=== PATIENT | male | born 1960 | race Two or more races ===

== ENCOUNTER 2018-03-26 09:10 | Observation (INO) | payer OTHER ==
[2018-03-26] MEDS ORDERED: SODIUM CHLORIDE 0.9% 1000 ML INFUS.BAG IV ONE (10:28)
[2018-03-26] MEDS ORDERED: morphine CARPU-JECT 4 MG/1 ML DISP.SYRIN IVPUSH ONE (10:28)
--- NOTE | 2018-03-26 10:42 | PDOC ---
History of Present Illness - General History Source: Patient Exam Limitations: No Limitations - History of Present Illness Initial Comments: 03/26/18 10:45 The patient is a 57 year old male with no significant PMH who presents to the emergency department with right testicular pain and swelling for the past three days. Patient states the testicular pain is constant and denies any trauma to the area. Patient reports subjective fevers at home, and states he took Tylenol last night and started himself on amoxicillin which he had at home. Patient denies similar symptoms in the past. Patient denies history of hernias in the past. The patient denies chest pain, shortness of breath, headache and dizziness. Denies fever, chills, nausea, vomit, diarrhea and constipation. Denies dysuria, frequency, urgency and hematuria. Allergies: NKA Past surgical history: None reported. Social history: No reported alcohol, drug, or cigarette use. PCP: Dr. Vizcarra <Charleen Rodriguez - Last Filed: 03/26/18 10:47> - General History Source: Patient Exam Limitations: No Limitations <Pricila Quiñonez - Last Filed: 03/26/18 20:45> - General Chief Complaint: Pain, Acute Stated Complaint: TESTICLE PAIN Past History <Charleen Rodriguez - Last Filed: 03/26/18 10:47> - Past Medical History COPD: No - Immunization History Immunization Up to Date: Yes - Suicide/Smoking/Psychosocial Hx Smoking History: Never smoked <Pricila Quiñonez - Last Filed: 03/26/18 20:45> - Past Medical History Allergies/Adverse Reactions: Allergies Allergy/AdvReac Type Severity Reaction Status Date / Time No Known Allergies Allergy Verified 03/26/18 09:46 Review of Systems - Review of Systems Able to Perform ROS?: Yes Comments:: 03/26/18 10:45 ADULT ROS GENERAL/CONSTITUTIONAL: No fever or chills. No weakness. HEAD, EYES, EARS, NOSE AND THROAT: No change in vision. No ear pain or discharge. No sore throat. CARDIOVASCULAR: No chest pain or shortness of breath. RESPIRATORY: No cough, wheezing, or hemoptysis. GASTROINTESTINAL: No nausea, vomiting, diarrhea or constipation. GENITOURINARY: No dysuria, frequency, or change in urination. (+) Right testicular pain and swelling. MUSCULOSKELETAL: No joint or muscle swelling or pain. No neck or back pain. SKIN: No rash NEUROLOGIC: No headache, vertigo, loss of consciousness, or change in strength/ sensation. ENDOCRINE: No increased thirst. No abnormal weight change. HEMATOLOGIC/LYMPHATIC: No anemia, easy bleeding, or history of blood clots. ALLERGIC/IMMUNOLOGIC: No hives or skin allergy. <Charleen Rodriguez - Last Filed: 03/26/18 10:47> *Physical Exam - Vital Signs Last Vital Signs Temp Pulse Resp BP Pulse Ox 99.2 F 84 18 131/76 97 03/26/18 09:20 03/26/18 09:20 03/26/18 09:20 03/26/18 09:20 03/26/18 09:20 - Physical Exam Comments: 03/26/18 10:46 ADULT EXAM GENERAL: Awake, alert, and fully oriented, in no acute distress HEAD: No signs of trauma EYES: PERRLA, EOMI, sclera anicteric, conjunctiva clear ENT: Auricles normal inspection, hearing grossly normal, nares patent. Moist mucosa NECK: Normal ROM, supple, no lymphadenopathy, JVD, or masses LUNGS: Breath sounds equal, clear to auscultation bilaterally. No wheezes, and no crackles HEART: Regular rate and rhythm, normal S1 and S2, no murmurs, rubs or gallops ABDOMEN: Soft, nontender, normoactive bowel sounds. No guarding, no rebound. No masses EXTREMITIES: Normal range of motion, no edema. No erythema or tenderness. DP/PT pulses 2+ and symmetric. Warm and well perfused. GENITOURINARY: (+) Right testicle is warm, erythematous, large, and tender. Left testicle is nontender. NEUROLOGICAL: Moves all extremities. Normal speech, normal gait SKIN: Warm, Dry, normal turgor, no rashes or lesions noted. <Charleen Rodriguez - Last Filed: 03/26/18 10:47> - Vital Signs Last Vital Signs Temp Pulse Resp BP Pulse Ox 99.2 F 84 18 131/76 97 03/26/18 09:20 03/26/18 09:20 03/26/18 09:20 03/26/18 09:20 03/26/18 09:20 <Pricila Quiñonez - Last Filed: 03/26/18 20:45> ED Treatment Course - LABORATORY CBC & Chemistry Diagram: 03/26/18 10:52 03/26/18 10:52 - RADIOLOGY Radiology Studies Ordered: Category Date Time Status SCROTUM AND CONTENTS US [US] Stat Ultrasound 03/26/18 10:26 Ordered <Pricila Quiñonez - Last Filed: 03/26/18 20:45> Medical Decision Making - Medical Decision Making 03/26/18 10:40 57-year-old male no past medical history here today complaining of right testicular pain patient states symptoms started 3 days ago denies trauma describes subjective fever and chills no nausea no vomiting no dysuria no history of the same. States took Tylenol this a.m. and started himself on amoxicillin which he had lying around the house no improvement of his symptoms. On physical exam the right testicle is warm erythematous swollen and exquisitely tender there is no palpable hernia it is enlarged compared to the left the left testicle is nontender Differential diagnosis includes orchitis, epididymitis, torsion, hernia. Plan ultrasound of the right testicle UA labs pain control 03/26/18 15:00 us with mass like lesion above right epeidydmis, no hernia . given zosyn, d/w herb will see pt in ed. will admit for abx iv, urology eval and pain control. <Pricila Quiñonez - Last Filed: 03/26/18 20:45> *DC/Admit/Observation/Transfer - Attestations Scribe Attestion: 03/26/18 10:46 Documentation prepared by Charleen Rodriguez, acting as medical driver for Pricila Quiñonez MD. <Charleen Rodriguez - Last Filed: 03/26/18 10:47> - Discharge Dispostion Decision to Admit order: Yes <Pricila Quiñonez - Last Filed: 03/26/18 20:45> Diagnosis at time of Disposition: Epididymitis, Epididymal mass
[2018-03-26] MEDS ORDERED: morphine SULFATE 4 MG/ML VIAL ONE (11:08)
[2018-03-26 11:19] LABS: BASO % 0.4 % (0-2.0); EOS % 0.8 % (0-4.5); HEMATOCRIT 38.9 % (35.4-49); HEMOGLOBIN 12.3 GM/dL (11.7-16.9); LYMPH % 17.9 % (8-40); MCH 26.5 pg (25.7-33.7); MCHC 31.7 g/dl (32.0-35.9); MEAN CELL VOLUME 83.7 fl (80-96); MEAN PLT VOLUME 8.7 fl (7.5-11.1); MONO % 8.2 % (3.8-10.2); NEUT % 72.7 % (42.8-82.8); PLATELET COUNT 218 K/MM3 (134-434); RBC 4.65 M/mm3 (4.00-5.60); WHITE BLOOD COUNT 9.6 K/mm3 (4.0-10.0)
[2018-03-26 11:45] LABS: ALBUMIN 3.3 g/dl (3.4-5.0); ALK PHOS 68 U/L (45-117); ANION GAP 8 MMOL/L (8-16); BILIRUBIN,TOTAL 0.8 mg/dL (0.2-1); BLOOD UREA NITROGEN 15 mg/dL (7-18); CALCIUM 8.6 mg/dL (8.5-10.1); CHLORIDE 106 mmol/L (98-107); CO2 27 mmol/L (21-32); CREATININE 1.1 mg/dL (0.55-1.3); GLUCOSE,RANDOM 93 mg/dL (74-106); POTASSIUM 4.4 mmol/L (3.5-5.1); SGOT/AST 31 U/L (15-37); SGPT/ALT 38 U/L (13-61); SODIUM 141 mmol/L (136-145); TOT PROT 6.6 g/dl (6.4-8.2)
[2018-03-26] MEDS ORDERED: PIPERACILLIN/TAZOB 3.375 GM 3.375 GM in DEXTROSE 5%-WATER - 50 ML IVPB ONE (13:05)
[2018-03-26 13:11] LABS: URINE APPEARANCE CLEAR; URINE BILIRUBIN NEGATIVE (<2.0 mg/dL); URINE COLOR YELLOW; URINE GLUCOSE (UA) NEGATIVE (NEGATIVE); URINE KETONE TRACE (NEGATIVE); URINE LEUK ESTERASE TRACE (NEGATIVE); URINE NITRITE NEGATIVE (NEGATIVE); URINE PROTEIN NEGATIVE (NEGATIVE); URINE UROBILINOGEN NEGATIVE mg/dL (0.2-1.0)
[2018-03-26 13:22] LABS: EPI CELLS RARE /HPF (FEW); URINE MUCUS FEW
[2018-03-26] MEDS ORDERED: PIPERACILLIN/TAZOB 3.375 GM 3.375 GM/50 ML BAG IVPB ONE (14:11)
--- NOTE | 2018-03-26 15:04 | HP ---
CHIEF COMPLAINT: PCP: HISTORY OF PRESENT ILLNESS: ER course was notable for: (1) (2) (3) Recent Travel: PAST MEDICAL HISTORY: PAST SURGICAL HISTORY: Social History: Smoking: Alcohol: Drugs: Family History: Allergies No Known Allergies Allergy (Verified 03/26/18 09:46) HOME MEDICATIONS: REVIEW OF SYSTEMS CONSTITUTIONAL: Absent: fever, chills, diaphoresis, generalized weakness, malaise, loss of appetite, weight change HEENT: Absent: rhinorrhea, nasal congestion, throat pain, throat swelling, difficulty swallowing, mouth swelling, ear pain, eye pain, visual changes CARDIOVASCULAR: Absent: chest pain, syncope, palpitations, irregular heart rate, lightheadedness , peripheral edema RESPIRATORY: Absent: cough, shortness of breath, dyspnea with exertion, orthopnea, wheezing, stridor, hemoptysis GASTROINTESTINAL: Absent: abdominal pain, abdominal distension, nausea, vomiting, diarrhea, constipation, melena, hematochezia GENITOURINARY: Absent: dysuria, frequency, urgency, hesitancy, hematuria, flank pain, genital pain MUSCULOSKELETAL: Absent: myalgia, arthralgia, joint swelling, back pain, neck pain SKIN: Absent: rash, itching, pallor HEMATOLOGIC/IMMUNOLOGIC: Absent: easy bleeding, easy bruising, lymphadenopathy, frequent infections ENDOCRINE: Absent: unexplained weight gain, unexplained weight loss, heat intolerance, cold intolerance NEUROLOGIC: Absent: headache, focal weakness or paresthesias, dizziness, unsteady gait, seizure, mental status changes, bladder or bowel incontinence PSYCHIATRIC: Absent: anxiety, depression, suicidal or homicidal ideation, hallucinations. PHYSICAL EXAMINATION Vital Signs - 24 hr 03/26/18 09:20 Temperature 99.2 F Pulse Rate 84 Respiratory 18 Rate Blood Pressure 131/76 O2 Sat by Pulse 97 Oximetry (%) GENERAL: Awake, alert, and fully oriented, in no acute distress. HEAD: Normal with no signs of trauma. EYES: Pupils equal, round and reactive to light, extraocular movements intact, sclera anicteric, conjunctiva clear. No lid lag. EARS, NOSE, THROAT: Ears normal, nares patent, oropharynx clear without exudates. Moist mucous membranes. NECK: Normal range of motion, supple without lymphadenopathy, JVD, or masses. LUNGS: Breath sounds equal, clear to auscultation bilaterally. No wheezes, and no crackles. No accessory muscle use. HEART: Regular rate and rhythm, normal S1 and S2 without murmur, rub or gallop. ABDOMEN: Soft, nontender, not distended, normoactive bowel sounds, no guarding, no rebound, no masses. No hepatomegaly or splenomegaly. MUSCULOSKELETAL: Normal range of motion at all joints. No bony deformities or tenderness. No CVA tenderness. UPPER EXTREMITIES: 2+ pulses, warm, well-perfused. No cyanosis. No clubbing. No peripheral edema. LOWER EXTREMITIES: 2+ pulses, warm, well-perfused. No calf tenderness. No peripheral edema. NEUROLOGICAL: Cranial nerves II-XII intact. Normal speech. Normal gait. PSYCHIATRIC: Cooperative. Good eye contact. Appropriate mood and affect. SKIN: Warm, dry, normal turgor, no rashes or lesions noted, normal capillary refill. Laboratory Results - last 24 hr 03/26/18 03/26/18 03/26/18 10:52 10:52 12:50 WBC 9.6 RBC 4.65 Hgb 12.3 Hct 38.9 MCV 83.7 MCH 26.5 MCHC 31.7 L RDW 14.0 Plt Count 218 MPV 8.7 Absolute Neuts (auto) 7.0 Neutrophils % 72.7 Lymphocytes % 17.9 Monocytes % 8.2 Eosinophils % 0.8 Basophils % 0.4 Nucleated RBC % 0 Sodium 141 Potassium 4.4 Chloride 106 Carbon Dioxide 27 Anion Gap 8 BUN 15 Creatinine 1.1 Creat Clearance w eGFR > 60 Random Glucose 93 Calcium 8.6 Total Bilirubin 0.8 AST 31 ALT 38 Alkaline Phosphatase 68 Total Protein 6.6 Albumin 3.3 L Urine Color Yellow Urine Appearance Clear Urine pH 5.0 Ur Specific [place] 1.024 Urine Protein Negative Urine Glucose (UA) Negative Urine Ketones Trace H Urine Blood Negative Urine Nitrite Negative Urine Bilirubin Negative Urine Urobilinogen Negative Ur Leukocyte Esterase Trace Urine WBC (Auto) 14 Urine RBC (Auto) 2 Ur Epithelial Cells Rare Urine Mucus Few ASSESSMENT/PLAN:
--- NOTE | 2018-03-26 19:42 | HP ---
CHIEF COMPLAINT: Right testicular pain and swelling x 3 days PCP: Dr. Vizcarra HISTORY OF PRESENT ILLNESS: 57 year old male with no significant PMH who presented to the emergency department with right testicular pain and swelling for the past three days. Patient states the testicular pain is constant and denies any trauma to the area. Patient reports subjective fevers at home, and states he took Tylenol last night and started himself on amoxicillin which he had at home. Patient denies similar symptoms in the past. Patient denies history of hernias in the past. Patient states he is sexually active with his and has no other sexual partners. Denies fever, chills, nausea, vomiting, diarrhea and constipation. Denies dysuria, frequency, urgency and hematuria. Recent Travel: No PAST MEDICAL HISTORY: Denies PAST SURGICAL HISTORY: No Social History: Smoking: None Alcohol: None Drugs: None Allergies No Known Allergies Allergy (Verified 03/26/18 09:46) HOME MEDICATIONS: None REVIEW OF SYSTEMS CONSTITUTIONAL: Present Subjective Fever Absent: chills, diaphoresis, generalized weakness, malaise, loss of appetite, weight change HEENT: Absent: rhinorrhea, nasal congestion, throat pain, throat swelling, difficulty swallowing, mouth swelling, ear pain, eye pain, visual changes CARDIOVASCULAR: Absent: chest pain, syncope, palpitations, irregular heart rate, lightheadedness , peripheral edema RESPIRATORY: Absent: cough, shortness of breath, dyspnea with exertion, orthopnea, wheezing, stridor, hemoptysis GASTROINTESTINAL: Absent: abdominal pain, abdominal distension, nausea, vomiting, diarrhea, constipation, melena, hematochezia GENITOURINARY: Present +right testicular pain and swelling Absent: dysuria, frequency, urgency, hesitancy, hematuria, flank pain, discharge MUSCULOSKELETAL: Absent: myalgia, arthralgia, joint swelling, back pain, neck pain SKIN: Absent: rash, itching, pallor HEMATOLOGIC/IMMUNOLOGIC: Absent: easy bleeding, easy bruising, lymphadenopathy, frequent infections ENDOCRINE: Absent: unexplained weight gain, unexplained weight loss, heat intolerance, cold intolerance NEUROLOGIC: Absent: headache, focal weakness or paresthesias, dizziness, unsteady gait, seizure, mental status changes, bladder or bowel incontinence PSYCHIATRIC: Absent: anxiety, depression, suicidal or homicidal ideation, hallucinations. PHYSICAL EXAMINATION Vital Signs - 24 hr 03/26/18 03/26/18 09:20 18:00 Temperature 99.2 F 99.1 F Pulse Rate 84 84 Respiratory 18 18 Rate Blood Pressure 131/76 121/75 O2 Sat by Pulse 97 97 Oximetry (%) GENERAL: Awake, alert, and fully oriented, in no acute distress. HEAD: Normal with no signs of trauma. EYES: +glasses, pupils equal, round and reactive to light, extraocular movements intact, sclera anicteric, conjunctiva clear. No lid lag. EARS, NOSE, THROAT: Ears normal, nares patent, oropharynx clear without exudates. Moist mucous membranes. NECK: Normal range of motion, supple without lymphadenopathy, JVD, or masses. LUNGS: Breath sounds equal, clear to auscultation bilaterally. No wheezes, and no crackles. No accessory muscle use. HEART: Regular rate and rhythm, normal S1 and S2 without murmur, rub or gallop. ABDOMEN: Soft, obese, nontender, not distended, normoactive bowel sounds, no guarding, no rebound, no masses. No hepatomegaly or splenomegaly. : Left testicle normal, right testicle markedly enlarged, mildly indurated, ++ TTP, no penile discharge or open areas to the surrounding skin MUSCULOSKELETAL: Normal range of motion at all joints. No bony deformities or tenderness. No CVA tenderness. UPPER EXTREMITIES: +Hep lock to right antecubital, 2+ pulses, warm, well- perfused. No cyanosis. No clubbing. No peripheral edema. LOWER EXTREMITIES: 2+ pulses, warm, well-perfused. No calf tenderness. No peripheral edema. NEUROLOGICAL: Cranial nerves II-XII intact. Normal speech. Gait not observed PSYCHIATRIC: Cooperative. Good eye contact. Appropriate mood and affect. SKIN: Warm, dry, normal turgor, no rashes or lesions noted, normal capillary refill. Laboratory Results - last 24 hr 03/26/18 03/26/18 03/26/18 10:52 10:52 12:50 WBC 9.6 RBC 4.65 Hgb 12.3 Hct 38.9 MCV 83.7 MCH 26.5 MCHC 31.7 L RDW 14.0 Plt Count 218 MPV 8.7 Absolute Neuts (auto) 7.0 Neutrophils % 72.7 Lymphocytes % 17.9 Monocytes % 8.2 Eosinophils % 0.8 Basophils % 0.4 Nucleated RBC % 0 Sodium 141 Potassium 4.4 Chloride 106 Carbon Dioxide 27 Anion Gap 8 BUN 15 Creatinine 1.1 Creat Clearance w eGFR > 60 Random Glucose 93 Calcium 8.6 Total Bilirubin 0.8 AST 31 ALT 38 Alkaline Phosphatase 68 Total Protein 6.6 Albumin 3.3 L Urine Color Yellow Urine Appearance Clear Urine pH 5.0 Ur Specific [place] 1.024 Urine Protein Negative Urine Glucose (UA) Negative Urine Ketones Trace H Urine Blood Negative Urine Nitrite Negative Urine Bilirubin Negative Urine Urobilinogen Negative Ur Leukocyte Esterase Trace Urine WBC (Auto) 14 Urine RBC (Auto) 2 Ur Epithelial Cells Rare Urine Mucus Few Scrotal US: IMPRESSION: Normal left testicle and epididymis with normal vascular flow. Normal size and echotexture of the right testicle without evidence of torsion or intratesticular mass. Enlarged right epididymis with a large echogenic heterogeneous vascular masslike lesion inseparable or abutting the right epididymis measuring 5.4 x 3 cm. There is prominent color Doppler flow in the right epididymis and testicle. Findings are highly suspicious for right epididymal orchitis. Cannot rule out infection or an extra testicular mass in the right superior aspect of the scrotum. Urology consult is suggested. Follow- up is needed. Case discussed with Dr. Pricila Quiñonez, caring attending physician Reported By: Regan Ward MD 03/26/18 1322 ASSESSMENT/PLAN: 57 year old male with no significant PMH presented to the emergency department with right testicular pain and swelling for the past three days. Epididymitis --US negative for torsion, 5.4 x 3 vascular, mass-like lesion abutting the right epididymis visualized --GC amplification, HIV, and Hep C pending. --Given Ceftriaxone 250 mg IM and will start Doxycycline 100 mg BID PO x 10 days empirically for G/C --Oxycodone 5 mg and APAP for pain management --Urology consult pending FEN --tolerating po fluids --bmp in am --regular diet as tolerated Dispo: pt currently requires further inpatient management of his emergent condition. Visit type - Emergency Visit Emergency Visit: Yes ED Registration Date: 03/26/18 Care time: The patient presented to the Emergency Department on the above date and was hospitalized for further evaluation of their emergent condition. - New Patient This patient is new to me today: Yes Date on this admission: 03/26/18 - Critical Care Critical Care patient: No
[2018-03-26] MEDS ORDERED: oxyCODONE HCL 5 MG TABLET PO PRN (19:45)
[2018-03-26] MEDS ORDERED: ACETAMINOPHEN 500 MG TABLET (FP) PO PRN (19:46)
[2018-03-26 23:02] VITALS: BMI 29.2
[2018-03-27] MEDS ORDERED: VANCOMYCIN 1,000 MG in DEXTROSE 5%-WATER - 250 ML IVPB ONE (09:53)
--- NOTE | 2018-03-27 09:59 | PN ---
Physical Exam: SUBJECTIVE: Patient seen and examined at bedside. OBJECTIVE: Vital Signs Period Temp Pulse Resp BP Sys/Cam Pulse Ox Last 24 Hr 99 F-100.1 F 81-87 18-20 111-123/66-78 97-97 GENERAL: The patient is awake, alert, and fully oriented, in mild distress secondary to scrotal pain LUNGS: Breath sounds equal, clear to auscultation bilaterally, no wheezes, no crackles, no accessory muscle use. HEART: Regular rate and rhythm, S1, S2 ABDOMEN: Soft, nontender, nondistended : Swelling right scrotum, ++tender; no penile discharge EXTREMITIES: 2+ pulses, warm, well-perfused, no edema. NEUROLOGICAL: Cranial nerves II through XII grossly intact. Normal speech, gait not observed. Laboratory Results - last 24 hr 03/26/18 03/26/18 03/26/18 10:52 10:52 12:50 WBC 9.6 RBC 4.65 Hgb 12.3 Hct 38.9 MCV 83.7 MCH 26.5 MCHC 31.7 L RDW 14.0 Plt Count 218 MPV 8.7 Absolute Neuts (auto) 7.0 Neutrophils % 72.7 Lymphocytes % 17.9 Monocytes % 8.2 Eosinophils % 0.8 Basophils % 0.4 Nucleated RBC % 0 Sodium 141 Potassium 4.4 Chloride 106 Carbon Dioxide 27 Anion Gap 8 BUN 15 Creatinine 1.1 Creat Clearance w eGFR > 60 Random Glucose 93 Calcium 8.6 Total Bilirubin 0.8 AST 31 ALT 38 Alkaline Phosphatase 68 Total Protein 6.6 Albumin 3.3 L Urine Color Yellow Urine Appearance Clear Urine pH 5.0 Ur Specific [place] 1.024 Urine Protein Negative Urine Glucose (UA) Negative Urine Ketones Trace H Urine Blood Negative Urine Nitrite Negative Urine Bilirubin Negative Urine Urobilinogen Negative Ur Leukocyte Esterase Trace Urine WBC (Auto) 14 Urine RBC (Auto) 2 Ur Epithelial Cells Rare Urine Mucus Few ASSESSMENT/PLAN 57 year-old male with no reported significant PMH admitted for epididymitis. Epididymitis --US negative for torsion, 5.4 x 3 vascular, mass-like lesion abutting the right epididymis visualized --GC amplification, HIV, and Hep C pending. --ceftriaxone and doxy started --oxycodone, tylenol PRN --urology consult pending UTI --urine culture +staph aureus --had been on PO abx x 4 days prior to admission --ID consult requested FEN Fluids: PO intake adequate Electrolytes: replete as indicated Nutrition: regular diet Dispo: continues to require inpatient care. Ful code. Visit type - Emergency Visit Emergency Visit: Yes ED Registration Date: 03/26/18 Care time: The patient presented to the Emergency Department on the above date and was hospitalized for further evaluation of their emergent condition. - New Patient This patient is new to me today: Yes Date on this admission: 03/28/18 - Critical Care Critical Care patient: No
[2018-03-27] MEDS: DOXYCYCLINE HYCLATE 100 MG CAPSULE PO SCH ×2 (10:08→17:21)
[2018-03-27 12:28] LABS: URINE APPEARANCE CLEAR; URINE BILIRUBIN NEGATIVE (<2.0 mg/dL); URINE COLOR STRAW; URINE GLUCOSE (UA) NEGATIVE (NEGATIVE); URINE KETONE NEGATIVE (NEGATIVE); URINE LEUK ESTERASE NEGATIVE (NEGATIVE); URINE NITRITE NEGATIVE (NEGATIVE); URINE PROTEIN NEGATIVE (NEGATIVE); URINE UROBILINOGEN NEGATIVE mg/dL (0.2-1.0)
--- NOTE | 2018-03-27 13:28 | CON.ID ---
Consult Consult Specialty:: infectious disease Referred by:: hospitalist Reason for Consultation:: epididymitis - History of Present Illness Chief Complaint: 4 day history of testicular pain and swelling History of Present Illness: never happened before sexually active monogamous started having chills and swelling- took amox bid for 4 days without improvement no prior history - History Source History Provided By: Patient, Medical Record Limitations to Obtaining History: Language Barrier - Alcohol/Substance Use Hx Alcohol Use: No - Smoking History Smoking history: Never smoked Have you smoked in the past 12 months: No - Social History Usual Living Arrangement: With Spouse ADL: Independent Occupation: [employer] Place of : Other History of Recent Travel: No Home Medications - Allergies Allergies/Adverse Reactions: Allergies Allergy/AdvReac Type Severity Reaction Status Date / Time No Known Allergies Allergy Verified 03/26/18 09:46 Family Disease History - Family Disease History Family History: Denies Review of Systems - Review of Systems Constitutional: reports: Chills Eyes: reports: No Symptoms HENT: reports: No Symptoms Neck: reports: No Symptoms Cardiovascular: reports: No Symptoms. denies: Chest Pain Respiratory: denies: Cough Gastrointestinal: denies: Abdominal Pain Physical Exam Vital Signs: Vital Signs Temperature 99.6 F 03/27/18 10:00 Pulse Rate 86 03/27/18 10:00 Respiratory Rate 20 03/27/18 10:00 Blood Pressure 139/81 03/27/18 10:00 O2 Sat by Pulse Oximetry (%) 97 03/27/18 02:00 Constitutional: Yes: Well Nourished, No Distress Eyes: Yes: Conjunctiva Clear HENT: Yes: Atraumatic, Normocephalic. No: Thrush Neck: Yes: Supple, Trachea Midline Cardiovascular: Yes: Regular Rate and Rhythm Respiratory: Yes: Regular, CTA Bilaterally Gastrointestinal: Yes: Normal Bowel Sounds, Soft. No: Tenderness, Epigastrium ...Rectal Exam: Yes: Deferred Renal/: Yes: Other (right testicular swelling and erythema- Tender to touch) Extremities: Yes: WNL Edema: No Integumentary: Yes: WNL Neurological: Yes: Alert, Oriented Labs: CBC, BMP 03/26/18 10:52 03/26/18 10:52 Microbiology 03/26/18 12:50 Urine - Urine Clean Catch Urine Culture - Preliminary Staphylococcus Latex Coag Pos Imaging - Results Ultrasound: Report Reviewed (enlarged right epidymitis, ?mass) Problem List - Problems (1) Epididymitis Code(s): N45.1 - EPIDIDYMITIS (2) Epididymal mass Code(s): N50.9 - DISORDER OF MALE GENITAL ORGANS, UNSPECIFIED Assessment/Plan pretreated with amox 2 tabs a day for four days prior to admission may have influenced culture results would get blood cultures vancomycin until cultures are back urine culture repeat pending urology consult pending gc/chlamydia NAAT qing
[2018-03-27] MEDS ORDERED: VANCOMYCIN 1 GRAM (PRE-DOCKED) 1,000 MG/250 ML BAG IVPB ONE (13:29)
[2018-03-27] MEDS ORDERED: DEXTROSE 5%-WATER 100 ML IVPB ONE (14:38)
[2018-03-27] MEDS: CEFTRIAXONE 2 GM in DEXTROSE 5%-WATER 100 ML IVPB SCH (14:41)
--- NOTE | 2018-03-27 16:23 | CON.GU ---
Consult Consult Specialty:: Referred by:: Medicine Reason for Consultation:: right scrotal mass - History of Present Illness Chief Complaint: right scrotal mass History of Present Illness: 57 year old male with 4 days of scrotal pain. US reveals orchitis. - History Source History Provided By: Patient, Family Member, Medical Record Limitations to Obtaining History: No Limitations - Past Medical History Renal/: No: Renal Failure, Renal Inusuff, BPH, Cancer, Hematuria, Hemodialysis , Neurogenic Bladder, Renal Calculi, UTI, Other - Alcohol/Substance Use Hx Alcohol Use: No - Smoking History Smoking history: Never smoked Have you smoked in the past 12 months: No Home Medications - Allergies Allergies/Adverse Reactions: Allergies Allergy/AdvReac Type Severity Reaction Status Date / Time No Known Allergies Allergy Verified 03/26/18 09:46 Review of Systems - Review of Systems Genitourinary: reports: Testicular Pain, Testicular Swelling Physical Exam- Vital Signs: Vital Signs Temperature 99.8 F H 03/27/18 14:16 Pulse Rate 91 H 03/27/18 14:16 Respiratory Rate 20 03/27/18 14:16 Blood Pressure 128/77 03/27/18 14:16 O2 Sat by Pulse Oximetry (%) 95 03/27/18 10:00 Scrotum: Yes: Induration, Tenderness Labs: CBC, BMP 03/26/18 10:52 03/26/18 10:52 Imaging - Results Ultrasound: Report Reviewed Problem List - Problems (1) Epididymal mass Code(s): N50.9 - DISORDER OF MALE GENITAL ORGANS, UNSPECIFIED (2) Epididymitis Assessment/Plan: antibiotics, elevation and ice packs. Code(s): N45.1 - EPIDIDYMITIS
[2018-03-28] MEDS: VANCOMYCIN 1 GRAM (PRE-DOCKED) 1,000 MG/250 ML BAG IVPB SCH ×2 (02:26→15:11)
[2018-03-28] MEDS ORDERED: DEXTROSE 5%-WATER 100 ML IVPB ONE (09:30)
[2018-03-28] MEDS: CEFTRIAXONE 2 GM in DEXTROSE 5%-WATER 100 ML IVPB SCH (09:35)
[2018-03-28] MEDS: DOXYCYCLINE HYCLATE 100 MG CAPSULE PO SCH (09:35)
[2018-03-28 11:16] LABS: ANION GAP 6 MMOL/L (8-16); BLOOD UREA NITROGEN 14 mg/dL (7-18); CALCIUM 8.4 mg/dL (8.5-10.1); CHLORIDE 103 mmol/L (98-107); CO2 31 mmol/L (21-32); CREATININE 1.2 mg/dL (0.55-1.3); GLUCOSE,RANDOM 118 mg/dL (74-106); MAGNESIUM 2.2 mg/dL (1.8-2.4); POTASSIUM 4.3 mmol/L (3.5-5.1); SODIUM 139 mmol/L (136-145)
[2018-03-28 12:03] LABS: BASO % 0.3 % (0-2.0); HEMATOCRIT 38.2 % (35.4-49); HEMOGLOBIN 12.6 GM/dL (11.7-16.9); LYMPH % 25.9 % (8-40); MCH 27.4 pg (25.7-33.7); MEAN PLT VOLUME 8.6 fl (7.5-11.1); MONO % 7.9 % (3.8-10.2); NEUT % 62.9 % (42.8-82.8); PLATELET COUNT 309 K/MM3 (134-434); RDW 13.6 % (11.9-15.9); WHITE BLOOD COUNT 8.1 K/mm3 (4.0-10.0)
--- NOTE | 2018-03-28 13:34 | PN ---
Physical Exam: SUBJECTIVE: Patient seen and examined at bedside. OBJECTIVE: Vital Signs Period Temp Pulse Resp BP Sys/Cam Pulse Ox Last 24 Hr 98.1 F-100.0 F 74-91 18-20 117-128/65-81 95-95 GENERAL: The patient is awake, alert, and fully oriented, in mild distress secondary to scrotal pain LUNGS: Breath sounds equal, clear to auscultation bilaterally, no wheezes, no crackles, no accessory muscle use. HEART: Regular rate and rhythm, S1, S2 ABDOMEN: Soft, nontender, nondistended : Swelling right testicle improved, less tender EXTREMITIES: 2+ pulses, warm, well-perfused, no edema. NEUROLOGICAL: Cranial nerves II through XII grossly intact. Normal speech, gait not observed. Laboratory Results - last 24 hr 03/28/18 03/28/18 10:10 10:10 WBC 8.1 RBC 4.60 Hgb 12.6 Hct 38.2 MCV 83.0 MCH 27.4 MCHC 33.0 RDW 13.6 Plt Count 309 D MPV 8.6 Absolute Neuts (auto) 5.1 Neutrophils % 62.9 Lymphocytes % 25.9 D Monocytes % 7.9 Eosinophils % 3.0 D Basophils % 0.3 Nucleated RBC % 0 Sodium 139 Potassium 4.3 Chloride 103 Carbon Dioxide 31 Anion Gap 6 L BUN 14 Creatinine 1.2 Creat Clearance w eGFR > 60 Random Glucose 118 H Calcium 8.4 L Magnesium 2.2 Active Medications Generic Name Dose Route Start Last Admin Trade Name Freq PRN Reason Stop Dose Admin Acetaminophen 1,000 mg 03/26/18 19:46 Tylenol - PO Q6H PRN PAIN LEVEL 1-5 Doxycycline Hyclate 100 mg 03/27/18 10:00 03/28/18 09:35 Vibramycin - PO 04/06/18 09:59 100 mg BID@1000,1800 ROGELIO Administration Ceftriaxone Sodium 2 gm/ 100 mls @ 200 mls/hr 03/27/18 13:45 03/28/18 09:35 Dextrose IVPB 200 mls/hr DAILY ROGELIO Administration Protocol Vancomycin HCl 1,000 mg in 250 mls @ 166.667 mls/hr 03/28/18 03:00 03/28/18 02:26 Vancomycin (Pre-Docked) IVPB 166.667 mls/hr Q12H ROGELIO Administration Protocol Oxycodone HCl 5 mg 03/26/18 19:45 03/26/18 23:29 Roxicodone - PO 5 mg Q6H PRN Administration PAIN LEVEL 6-10 Microbiology 03/27/18 13:15 Blood - Peripheral Venous Blood Culture - Preliminary NO GROWTH OBTAINED AFTER 24 HOURS, INCUBATION TO CONTINUE FOR 4 DAYS. 03/27/18 13:10 Blood - Peripheral Venous Blood Culture - Preliminary NO GROWTH OBTAINED AFTER 24 HOURS, INCUBATION TO CONTINUE FOR 4 DAYS. 03/27/18 11:15 Urine - Urine Clean Catch Urine Culture - Final NO GROWTH OBTAINED 03/26/18 12:50 Urine - Urine Clean Catch Urine Culture - Final Staphylococcus Aureus ASSESSMENT/PLAN 57 year-old male with no reported significant PMH admitted for epididymitis. Epididymitis --US negative for torsion, 5.4 x 3 vascular, mass-like lesion abutting the right epididymis visualized --C&G pending --continue ceftriaxone (day #2) --oxycodone, tylenol PRN --seen and evaluated by urology: medical management UTI --03/26 urine culture +staph aureus; repeat culture on 03/27 was negative but collected after antibiotics --per ID continue Vanc (day #2) until blood cultures back FEN Fluids: PO intake adequate Electrolytes: replete as indicated Nutrition: regular diet Dispo: continues to require inpatient care. Ful code. Visit type - Emergency Visit Emergency Visit: Yes ED Registration Date: 03/26/18 Care time: The patient presented to the Emergency Department on the above date and was hospitalized for further evaluation of their emergent condition. - New Patient This patient is new to me today: No - Critical Care Critical Care patient: No
[2018-03-28] MEDS ORDERED: oxyCODONE HCL 5 MG TABLET PO PRN ×2 (14:18→14:19)
[2018-03-28] MEDS ORDERED: ACETAMINOPHEN 325 MG TABLET (FP) PO PRN (14:21)
[2018-03-29] MEDS: VANCOMYCIN 1 GRAM (PRE-DOCKED) 1,000 MG/250 ML BAG IVPB SCH (02:45)
[2018-03-29] MEDS ORDERED: DEXTROSE 5%-WATER 100 ML IVPB ONE (09:33)
[2018-03-29] MEDS: CEFTRIAXONE 2 GM in DEXTROSE 5%-WATER 100 ML IVPB SCH (09:34)
--- NOTE | 2018-03-29 15:49 | PN ---
Physical Exam: SUBJECTIVE: Patient seen and examined at bedside. Pain is better. OBJECTIVE: Vital Signs Period Temp Pulse Resp BP Sys/Cam Pulse Ox Last 24 Hr 98.3 F-99.8 F 70-86 16-20 112-137/69-86 97-97 GENERAL: The patient is awake, alert, and fully oriented, in mild distress secondary to scrotal pain LUNGS: Breath sounds equal, clear to auscultation bilaterally, no wheezes, no crackles, no accessory muscle use. HEART: Regular rate and rhythm, S1, S2 ABDOMEN: Soft, nontender, nondistended : Swelling right testicle continues to improve, less tender EXTREMITIES: 2+ pulses, warm, well-perfused, no edema. NEUROLOGICAL: Cranial nerves II through XII grossly intact. Normal speech, gait not observed. Active Medications Generic Name Dose Route Start Last Admin Trade Name Freq PRN Reason Stop Dose Admin Acetaminophen 650 mg 03/28/18 14:21 Tylenol - PO Q6H PRN PAIN LEVEL 1-5 Ceftriaxone Sodium 2 gm/ 100 mls @ 200 mls/hr 03/27/18 13:45 03/29/18 09:34 Dextrose IVPB 200 mls/hr DAILY ROGELIO Administration Protocol Oxycodone HCl 5 mg 03/26/18 19:45 03/26/18 23:29 Roxicodone - PO 5 mg Q6H PRN Administration PAIN LEVEL 6-10 ASSESSMENT/PLAN: 57 year-old male with no reported significant PMH admitted for epididymitis. Epididymitis --US negative for torsion, 5.4 x 3 vascular, mass-like lesion abutting the right epididymis visualized --C&G pending --continue ceftriaxone (day #3) --oxycodone, tylenol PRN --seen and evaluated by urology: medical management UTI --03/26 urine culture +staph aureus; repeat culture on 03/27 was negative but collected after antibiotics --per ID continue Vanc (day #3) pending resullts of 03/27 blood cultures which are NGTD FEN Fluids: PO intake adequate Electrolytes: replete as indicated Nutrition: regular diet Dispo: continues to require inpatient care. Ful code. Visit type - Emergency Visit Emergency Visit: Yes ED Registration Date: 03/26/18 Care time: The patient presented to the Emergency Department on the above date and was hospitalized for further evaluation of their emergent condition. - New Patient This patient is new to me today: No - Critical Care Critical Care patient: No
[2018-03-30] MEDS ORDERED: DEXTROSE 5%-WATER 100 ML IVPB ONE (09:55)
[2018-03-30] MEDS: CEFTRIAXONE 2 GM in DEXTROSE 5%-WATER 100 ML IVPB SCH (10:16)
--- NOTE | 2018-03-30 14:47 | PN ---
Progress Note (short form) - Note Progress Note: feels improved much less tender no fevers Vital Signs Period Temp Pulse Resp BP Sys/Cam Pulse Ox Last 24 Hr 98.3 F-98.8 F 73-92 18-20 116-131/69-79 97-98 cor-rrr lungs clear abd soft,nt +indurated swollen right testicle not tender to palpation ext no edema CBC, BMP 03/28/18 10:10 03/28/18 10:10 Microbiology 03/27/18 13:15 Blood - Peripheral Venous Blood Culture - Preliminary NO GROWTH OBTAINED AFTER 72 HOURS, INCUBATION TO CONTINUE FOR 2 DAYS. 03/27/18 13:10 Blood - Peripheral Venous Blood Culture - Preliminary NO GROWTH OBTAINED AFTER 72 HOURS, INCUBATION TO CONTINUE FOR 2 DAYS. 03/27/18 11:15 Urine - Urine Clean Catch Urine Culture - Final NO GROWTH OBTAINED 03/26/18 12:50 Urine - Urine Clean Catch Urine Culture - Final Staphylococcus Aureus a/p epidydo-orchitis- improved can switch to po augmentin clinically improving d/w dr Amezcua can switch to po augmenting 875 bid to complete 14 days needs scrotal support can f/u with urology as outpt Problem List - Problems (1) Epididymitis Code(s): N45.1 - EPIDIDYMITIS (2) Epididymal mass Code(s): N50.9 - DISORDER OF MALE GENITAL ORGANS, UNSPECIFIED
[2018-03-30 15:38] VITALS: BP 118/76; PULSE 87; TEMP 98.4
--- NOTE | 2018-03-30 15:50 | DS ---
Physical Exam: SUBJECTIVE: Patient seen and examined OBJECTIVE: Vital Signs Period Temp Pulse Resp BP Sys/Cam Pulse Ox Last 24 Hr 98.3 F-98.8 F 73-92 17-18 116-131/69-79 97-98 PHYSICAL EXAM GENERAL: The patient is awake, alert, and fully oriented, in no acute distress. HEAD: Normal with no signs of trauma. EYES: PERRL, extraocular movements intact, sclera anicteric, conjunctiva clear. ENT: Ears normal, nares patent, oropharynx clear without exudates, moist mucous membranes. NECK: Trachea midline, full range of motion, supple. LUNGS: Breath sounds equal, clear to auscultation bilaterally, no wheezes, no crackles, no accessory muscle use. HEART: Regular rate and rhythm, S1, S2 without murmur, rub or gallop. ABDOMEN: Soft, nontender, nondistended, normoactive bowel sounds, no guarding, no rebound, no hepatosplenomegaly, no masses. EXTREMITIES: 2+ pulses, warm, well-perfused, no edema. NEUROLOGICAL: Cranial nerves II through XII grossly intact. Normal speech, gait not observed. PSYCH: Normal mood, normal affect. SKIN: Warm, dry, normal turgor, no rashes or lesions noted. LABS HOSPITAL COURSE: Date of Admission:03/26/18 Date of Discharge: 03/30/18 Minutes to complete discharge: 35 Discharge Summary Reason For Visit: EPIDIDYMITIS, EPIDIDYMAL MASS Current Active Problems Epididymal mass (Acute) Epididymitis (Acute) Condition: Improved - Instructions Diet, Activity, Other Instructions: A prescription has been sent to your pharmacy for augmentin which is an antibiotic. Take this medication as directed and be sure to finish all the medication. It is important you follow up with Dr. Rankin, urologist. Call his office tomorrow morning and make an appointment to see him within 1 week. His contact information is enclosed in this discharge packet. Return to the emergency department for any new or worsening symptoms. Referrals: Donal Rankin MD [Staff Physician] - 1 Week Disposition: HOME - Home Medications Comprehensive Discharge Medication List: Ambulatory Orders Amoxicillin/Potassium Clav [Augmentin 875-125 Tablet] 1 each PO BID #20 tablet 03/30/18 This patient is new to me today: No Emergency Visit: Yes ED Registration Date: 03/26/18 Care time: The patient presented to the Emergency Department on the above date and was hospitalized for further evaluation of their emergent condition. Critical Care patient: No
== END 2018-03-30 17:35 | disposition home or self-care (01) ==
LOC: JER 09:10 → JERBED 15:05 → J8W 21:31
PROVIDERS: ADMIT Hospitalist; ATTEND Nurse Practitioner Acute Care
PROC: 3E03329 Introduction of Other Anti-infective into Peripheral Vein, Percutaneous Approach (ICD-10-PCS; principal; 2018-03-26)
PROC: 3E033NZ Introduction of Analgesics, Hypnotics, Sedatives into Peripheral Vein, Percutaneous Approach (ICD-10-PCS; 2018-03-26)
PROC: 3E0337Z Introduction of Electrolytic and Water Balance Substance into Peripheral Vein, Percutaneous Approach (ICD-10-PCS; 2018-03-26)
DX: N45.1 Epididymitis (principal); N50.9 Disorder of male genital organs, unspecified; N39.0 Urinary tract infection, site not specified; B95.61 Methicillin susceptible Staphylococcus aureus infection as the cause of diseases classified elsewhere
CPT/HCPCS: 36415; 76870-TC; 80048; 80053; 81003; 81015; 83735; 85025; 87040; 87086; 87186; 87491; 87591; 96365; 96367; 96372; 96375; 96376; 99282-25; G0378; J7030

== ENCOUNTER 2020-10-03 06:28 | Inpatient (IN) | payer OTHER ==
[2020-10-03] MEDS ORDERED: SODIUM CHLORIDE 2,449 ML IV ONE (06:50)
[2020-10-03] MEDS ORDERED: ACETAMINOPHEN 1000 MG/100 ML VIAL (NON FORMULARY) IVPB ONE (07:34)
[2020-10-03] MEDS ORDERED: ACETAMINOPHEN INJECTION 100 ML IVPB ONE (08:09)
[2020-10-03] MEDS ORDERED: ONDANSETRON 4 MG/2 ML VIAL IVPUSH ONE (08:26)
[2020-10-03 08:41] LABS: VENOUS BASE EXCESS 0.6 mmol/L (-2-2); VENOUS O2 SATURATION 91.2 % (70-80); VENOUS PH 7.388 (7.310-7.410)
[2020-10-03 08:43] LABS: BASO % 0.1 % (0-2.0); EOS % 0.9 % (0-4.5); HEMATOCRIT 43.9 % (35.4-49); HEMOGLOBIN 14.7 GM/dL (11.7-16.9); LYMPH % 5.1 % (8-40); MCH 27.9 pg (25.7-33.7); MCHC 33.4 g/dl (32.0-35.9); MEAN CELL VOLUME 83.7 fl (80-96); MEAN PLT VOLUME 9.6 fl (7.5-11.1); MONO % 7.1 % (3.8-10.2); NEUT % 86.8 % (42.8-82.8); PLATELET COUNT 196 K/MM3 (134-434); RBC 5.24 M/mm3 (4.00-5.60); WHITE BLOOD COUNT 8.1 K/mm3 (4.0-10.0)
[2020-10-03] MEDS ORDERED: ONDANSETRON 4 MG/2 ML VIAL ONE (08:51)
[2020-10-03 08:52] LABS: INR 1.14 (0.83-1.09)
[2020-10-03 08:54] LABS: ACTIVATED PTT 24.3 SECONDS (25.2-36.5)
[2020-10-03 09:05] LABS: EPI CELLS 16 /uL (0-25.1); HYALINE CASTS 2 /uL (0-3.1); URINE APPEARANCE CLEAR; URINE BACTERIA 35 /uL (0-1359); URINE BILIRUBIN NEGATIVE (NEGATIVE); URINE COLOR YELLOW; URINE GLUCOSE (UA) NEGATIVE (NEGATIVE); URINE KETONE NEGATIVE (NEGATIVE); URINE LEUK ESTERASE TRACE (NEGATIVE); URINE NITRITE NEGATIVE (NEGATIVE); URINE PROTEIN TRACE (NEGATIVE); URINE RBC 15 /uL (0-23.9); URINE UROBILINOGEN 0.2 mg/dL (0.2-1.0); URINE WBC 55 /uL (0-25.8)
[2020-10-03 09:07] LABS: CHLORIDE 104 mmol/L (98-107); SODIUM 138 mmol/L (136-145)
[2020-10-03 09:09] LABS: ALBUMIN 4.1 g/dl (3.4-5.0); ANION GAP 6 MMOL/L (8-16); BLOOD UREA NITROGEN 28.5 mg/dL (7-18); CALCIUM 9.5 mg/dL (8.5-10.1); CO2 28 mmol/L (21-32); GLUCOSE,RANDOM 108 mg/dL (74-106)
[2020-10-03 09:12] LABS: CREATININE 1.3 mg/dL (0.55-1.3); SGOT/AST 22 U/L (15-37); SGPT/ALT 31 U/L (13-61)
[2020-10-03 09:14] LABS: TOT PROT 7.4 g/dl (6.4-8.2)
[2020-10-03 09:15] LABS: ALK PHOS 61 U/L (45-117)
[2020-10-03 09:18] LABS: LACTIC ACID 2.5 mmol/L (0.4-2.0)
[2020-10-03 09:20] LABS: BILIRUBIN,TOTAL 0.7 mg/dL (0.2-1)
[2020-10-03 11:47] LABS: LACTIC ACID 2.1 mmol/L (0.4-2.0)
[2020-10-03 12:51] LABS: ARTERIAL BLD GAS O2 SATURATION 92.3 mmHg (95-98); ARTERIAL BLOOD GAS BASE EXCESS -1.1 mmol/L (-2-2); ARTERIAL BLOOD GAS PO2 65.2 mmHg (80-100); ARTERIAL BLOOD GAS pH 7.371 (7.350-7.450)
[2020-10-03] MEDS ORDERED: LACTATED RINGERS SOLUTION 1,000 ML/1,000 ML INFUS.BAG IV SCH (22:15)
[2020-10-04 05:45] VITALS: BMI 30.7
[2020-10-04 08:10] LABS: ALBUMIN 3.5 g/dl (3.4-5.0); BILIRUBIN,TOTAL 0.5 mg/dl (0.2-1); CALCIUM 8.1 mg/dl (8.5-10); CREATININE 1.1 mg/dl (0.55-1.3); MAGNESIUM 1.8 mg/dL (1.8-2.4); PHOSPHOROUS 2.5 mg/dl (2.5-4.9); TOT PROT 5.9 g/dl (6.4-8.2)
[2020-10-04] MEDS ORDERED: AZITHROMYCIN 500 MG TABLET PO ONE (10:00)
[2020-10-04] MEDS ORDERED: AZITHROMYCIN 250 MG TABLET PO ONE (10:00)
[2020-10-04] MEDS ORDERED: ENOXAPARIN NA (PORCINE) 40 MG/0.4 ML DISP.SYRIN SQ SCH (10:00)
[2020-10-04 10:20] VITALS: BP 120/76; PULSE 92; TEMP 98.2
== END 2020-10-04 11:16 | disposition home or self-care (01) | DRG 392 ==
LOC: JER 06:28 → JERBED 19:08 → FM/S 10-04 05:44
PROVIDERS: ADMIT Hospitalist; ATTEND Nurse Practitioner Acute Care
DX: A08.4 Viral intestinal infection, unspecified (principal); J98.11 Atelectasis; R09.02 Hypoxemia; R30.0 Dysuria; R91.1 Solitary pulmonary nodule
CPT/HCPCS: 36415; 36600; 71045-TC-FY; 71046-TC-FY; 71250-TC; 74177-TC; 80053; 81003; 82728; 82803; 83605; 83735; 84100; 84443; 84484; 85025; 85610; 85730; 86140; 87040; 87045; 87046; 87086; 87186; 87804; 93005; 93010; 99285-25; C9803; J0131; Q9967; U0003; U0005

== ENCOUNTER 2022-05-03 04:57 | Inpatient (IN) | payer OTHER ==
[2022-05-03] MEDS ORDERED: CEFTRIAXONE 1,000 MG in DEXTROSE 5%-WATER - 50 ML IVPB ONE (05:42)
[2022-05-03] MEDS ORDERED: CEFTRIAXONE 1 GM/50 ML BAG ONE (05:53)
[2022-05-03 05:55] LABS: BASO % 0.2 % (0-2.0); EOS % 0.8 % (0-4.5); HEMATOCRIT 45.2 % (35.4-49); HEMOGLOBIN 14.8 GM/dL (11.7-16.9); LYMPH % 5.8 % (8-40); MCH 27.4 pg (25.7-33.7); MCHC 32.8 g/dl (32.0-35.9); MEAN CELL VOLUME 83.5 fl (80-96); MEAN PLT VOLUME 9.5 fl (7.5-11.1); NEUT % 86.2 % (42.8-82.8); PLATELET COUNT 181 10^3/uL (134-434); RBC 5.41 M/mm3 (4.00-5.60); RDW 14.1 % (11.9-15.9); WHITE BLOOD COUNT 8.6 K/mm3 (4.0-10.0)
[2022-05-03 06:04] LABS: VENOUS BASE EXCESS 1.3 mmol/L (-2-2); VENOUS O2 SATURATION 89.3 % (70-80); VENOUS PH 7.426 (7.310-7.410)
[2022-05-03 06:15] LABS: SODIUM 141 mmol/L (136-145)
[2022-05-03 06:17] LABS: CALCIUM 8.8 mg/dL (8.5-10.1)
[2022-05-03 06:18] LABS: BLOOD UREA NITROGEN 27.2 mg/dL (7-18); CO2 25 mmol/L (21-32); GLUCOSE,RANDOM 113 mg/dL (74-106); INR 1.19 (0.83-1.09); PROTHROMBIN TIME (PATIENT) 13.7 SEC (9.7-13.0)
[2022-05-03 06:21] LABS: CREATININE 1.4 mg/dL (0.55-1.3); SGOT/AST 25 U/L (15-37); SGPT/ALT 32 U/L (13-61)
[2022-05-03 06:23] LABS: BILIRUBIN,TOTAL 0.8 mg/dL (0.2-1); LACTIC ACID 2.1 mmol/L (0.4-2.0); TOT PROT 7.1 g/dl (6.4-8.2)
[2022-05-03 06:24] LABS: ALK PHOS 51 U/L (45-117)
[2022-05-03] MEDS ORDERED: LACTATED RINGERS SOLUTION 1000 ML INFUS.BAG IV ONE (06:25)
[2022-05-03 06:33] LABS: ANION GAP 9 MMOL/L (8-16); CHLORIDE 107 mmol/L (98-107)
[2022-05-03 06:33] LABS: EPI CELLS 10 /uL (0-25.1); HYALINE CASTS 4 /uL (0-3.1); URINE APPEARANCE CLEAR; URINE BACTERIA 32 /uL (0-1359); URINE BILIRUBIN NEGATIVE (NEGATIVE); URINE COLOR YELLOW; URINE GLUCOSE (UA) NEGATIVE (NEGATIVE); URINE KETONE TRACE (NEGATIVE); URINE LEUK ESTERASE TRACE (NEGATIVE); URINE NITRITE NEGATIVE (NEGATIVE); URINE PROTEIN TRACE (NEGATIVE); URINE RBC 7 /uL (0-23.9); URINE UROBILINOGEN 0.2 mg/dL (0.2-1.0); URINE WBC 40 /uL (0-25.8)
[2022-05-03] MEDS ORDERED: ONDANSETRON 4 MG/2 ML VIAL IVPUSH ONE (06:45)
[2022-05-03] MEDS ORDERED: ONDANSETRON 4 MG/2 ML VIAL ONE (06:49)
[2022-05-03] MEDS: PANTOPRAZOLE SODIUM 40 MG VIAL IVPUSH SCH (15:45)
[2022-05-03 18:33] VITALS: BMI 34.4
[2022-05-03] MEDS: HEPARIN NA (PORCINE) 5,000 UNITS/ML 1ML VIAL SQ SCH (21:51)
[2022-05-03] MEDS: LACTATED RINGERS SOLUTION 1,000 ML IV SCH (21:53)
[2022-05-04] MEDS: LACTATED RINGERS SOLUTION 1,000 ML IV SCH ×2 (01:27→11:52)
[2022-05-04 09:07] VITALS: BP 132/71; PULSE 84; RESP 18; TEMP 99
[2022-05-04 10:12] LABS: BASO % 0.1 % (0-2.0); EOS % 1.6 % (0-4.5); HEMATOCRIT 41.3 % (35.4-49); HEMOGLOBIN 13.2 GM/dL (11.7-16.9); LYMPH % 26.3 % (8-40); MCH 26.9 pg (25.7-33.7); MEAN PLT VOLUME 9.6 fl (7.5-11.1); MONO % 5.2 % (3.8-10.2); NEUT % 66.8 % (42.8-82.8); PLATELET COUNT 184 10^3/uL (134-434); RBC 4.92 M/mm3 (4.00-5.60); RDW 14.2 % (11.9-15.9); WHITE BLOOD COUNT 7.4 K/mm3 (4.0-10.0)
[2022-05-04] MEDS: HEPARIN NA (PORCINE) 5,000 UNITS/ML 1ML VIAL SQ SCH (10:32)
[2022-05-04] MEDS: PANTOPRAZOLE SODIUM 40 MG VIAL IVPUSH SCH (10:32)
[2022-05-04 10:39] LABS: CALCIUM 8.2 mg/dL (8.5-10.1)
[2022-05-04 10:40] LABS: ALBUMIN 3.3 g/dl (3.4-5.0); BLOOD UREA NITROGEN 19.2 mg/dL (7-18); MAGNESIUM 1.9 mg/dL (1.8-2.4)
[2022-05-04 10:42] LABS: CREATININE 1.2 mg/dL (0.55-1.3)
[2022-05-04 10:43] LABS: BILIRUBIN,TOTAL 0.6 mg/dL (0.2-1); TOT PROT 6.1 g/dl (6.4-8.2)
== END 2022-05-04 17:02 | disposition home or self-care (01) | DRG 392 ==
LOC: JER 04:57 → JERBED 09:22 → J8W 15:35
PROVIDERS: ADMIT Family Medicine; ATTEND Family Medicine
DX: A09 Infectious gastroenteritis and colitis, unspecified (principal); N17.9 Acute kidney failure, unspecified; J98.11 Atelectasis; Z68.30 Body mass index [BMI] 30.0-30.9, adult; R09.02 Hypoxemia; E86.0 Dehydration
CPT/HCPCS: 0241U-QW; 36415; 71045-TC-FY; 71275-TC; 74176-TC; 80053; 81003; 82553; 82803; 83605; 83735; 84443; 85025; 85610; 85730; 86140; 86850; 86900; 86901; 87040; 87086; 87899; 93005; 93010; 99285-25; J1644; Q9967

== ENCOUNTER 2023-01-18 03:15 | Inpatient (IN) | payer OTHER ==
[2023-01-18] MEDS ORDERED: ACETAMINOPHEN 1000 MG/100 ML BAG IVPB ONE ×2 (04:00→12:38)
[2023-01-18] MEDS ORDERED: SODIUM CHLORIDE 1,000 ML IV STA (04:00)
[2023-01-18] MEDS ORDERED: ACETAMINOPHEN INJECTION 100 ML IVPB ONE ×2 (04:09→12:41)
[2023-01-18 04:29] LABS: VENOUS O2 SATURATION 60.9 % (70-80); VENOUS PCO2 32.7 mmHg (38-52); VENOUS PH 7.481 (7.310-7.410)
[2023-01-18 04:36] LABS: EPI CELLS 2 /uL (0-25.1); HYALINE CASTS 0 /uL (0-3.1); URINE APPEARANCE CLEAR; URINE BACTERIA 101 /uL (0-1359); URINE BILIRUBIN NEGATIVE (NEGATIVE); URINE COLOR RED; URINE GLUCOSE (UA) NEGATIVE (NEGATIVE); URINE KETONE NEGATIVE (NEGATIVE); URINE LEUK ESTERASE 2+ (NEGATIVE); URINE NITRITE NEGATIVE (NEGATIVE); URINE PROTEIN 1+ (NEGATIVE); URINE RBC 5926 /uL (0-23.9); URINE UROBILINOGEN 0.2 mg/dL (0.2-1.0); URINE WBC 1237 /uL (0-25.8)
[2023-01-18 04:39] LABS: BASO % 0.2 % (0-2.0); EOS % 0.6 % (0-4.5); HEMATOCRIT 39.9 % (35.4-49); HEMOGLOBIN 13.3 GM/dL (11.7-16.9); LYMPH % 13.2 % (8-40); MCH 27.6 pg (25.7-33.7); MCHC 33.2 g/dl (32.0-35.9); MEAN PLT VOLUME 9.4 fl (7.5-11.1); MONO % 2.8 % (3.8-10.2); NEUT % 83.2 % (42.8-82.8); PLATELET COUNT 161 10^3/uL (134-434); RBC 4.81 M/mm3 (4.00-5.60); RDW 13.9 % (11.9-15.9); WHITE BLOOD COUNT 6.8 K/mm3 (4.0-10.0)
[2023-01-18 04:45] LABS: INR 1.18 (0.83-1.09); PROTHROMBIN TIME (PATIENT) 13.7 SEC (9.7-13.0)
[2023-01-18 04:47] LABS: ACTIVATED PTT 27.2 SECONDS (25.2-36.5)
[2023-01-18 04:55] LABS: CHLORIDE 107 mmol/L (98-107); POTASSIUM 4.4 mmol/L (3.5-5.1); SODIUM 140 mmol/L (136-145)
[2023-01-18 04:57] LABS: CALCIUM 8.6 mg/dL (8.5-10.1)
[2023-01-18 04:58] LABS: ALBUMIN 3.7 g/dl (3.4-5.0); ANION GAP 7 MMOL/L (8-16); BLOOD UREA NITROGEN 16.4 mg/dL (7-18); CO2 26 mmol/L (21-32); GLUCOSE,RANDOM 104 mg/dL (74-106)
[2023-01-18 05:01] LABS: CREATININE 1.4 mg/dL (0.55-1.3); SGOT/AST 19 U/L (15-37); SGPT/ALT 21 U/L (13-61)
[2023-01-18 05:03] LABS: TOT PROT 6.6 g/dl (6.4-8.2)
[2023-01-18 05:04] LABS: ALK PHOS 54 U/L (45-117)
[2023-01-18 05:15] LABS: LACTIC ACID 2.3 mmol/L (0.4-2.0)
[2023-01-18 05:16] LABS: BILIRUBIN,TOTAL 0.8 mg/dL (0.2-1)
[2023-01-18] MEDS ORDERED: SODIUM CHLORIDE 0.9% 500 ML INFUS.BAG IV ONE (05:53)
[2023-01-18] MEDS ORDERED: CEFTRIAXONE 1 GM in DEXTROSE 5%-WATER - 50 ML IVPB SCH (14:15)
[2023-01-18] MEDS ORDERED: CEFTRIAXONE 1 GM/50 ML BAG ONE (14:15)
[2023-01-18] MEDS: D5-1/2NS+20 MEQ KCL - 20 MEQ/1,000 ML INFUS.BAG IV SCH (15:15)
[2023-01-18] MEDS ORDERED: IBUPROFEN 800 MG/8 ML IJ IVPB ONE (15:17)
[2023-01-18 17:36] VITALS: BMI 29.0
[2023-01-18] MEDS: PIPERACILLIN/TAZOB 3.375 GM 3.375 GM in DEXTROSE 5%-WATER - 50 ML IVPB SCH (20:30)
[2023-01-19] MEDS: PIPERACILLIN/TAZOB 3.375 GM 3.375 GM in DEXTROSE 5%-WATER - 50 ML IVPB SCH ×3 (01:13→18:35)
[2023-01-19] MEDS: D5-1/2NS+20 MEQ KCL - 20 MEQ/1,000 ML INFUS.BAG IV SCH ×2 (03:53→16:00)
[2023-01-19] MEDS: ACETAMINOPHEN 650 MG/20.3 ML ORAL SOLUTION (CUPS) PO PRN ×3 (10:22→21:13)
[2023-01-19 10:26] LABS: BASO % 0.3 % (0-2.0); EOS % 0.5 % (0-4.5); HEMATOCRIT 36.5 % (35.4-49); HEMOGLOBIN 11.9 GM/dL (11.7-16.9); LYMPH % 7.1 % (8-40); MCH 27.4 pg (25.7-33.7); MCHC 32.5 g/dl (32.0-35.9); MEAN CELL VOLUME 84.1 fl (80-96); MEAN PLT VOLUME 10.6 fl (7.5-11.1); MONO % 3.7 % (3.8-10.2); NEUT % 88.4 % (42.8-82.8); PLATELET COUNT 107 10^3/uL (134-434); RBC 4.34 M/mm3 (4.00-5.60); RDW 13.8 % (11.9-15.9); WHITE BLOOD COUNT 8.9 K/mm3 (4.0-10.0)
[2023-01-19 10:46] LABS: POTASSIUM 4.1 mmol/L (3.5-5.1)
[2023-01-19 10:48] LABS: BLOOD UREA NITROGEN 16.4 mg/dL (7-18); CALCIUM 7.8 mg/dL (8.5-10.1)
[2023-01-19 10:51] LABS: CREATININE 1.7 mg/dL (0.55-1.3)
[2023-01-19 10:53] LABS: TOT PROT 5.2 g/dl (6.4-8.2)
[2023-01-19 11:15] LABS: ALBUMIN 2.7 g/dl (3.4-5.0)
[2023-01-20] MEDS: PIPERACILLIN/TAZOB 3.375 GM 3.375 GM in DEXTROSE 5%-WATER - 50 ML IVPB SCH ×2 (02:45→09:28)
[2023-01-20] MEDS: D5-1/2NS+20 MEQ KCL - 20 MEQ/1,000 ML INFUS.BAG IV SCH ×2 (09:32→16:28)
[2023-01-20] MEDS ORDERED: SODIUM CHLORIDE 1,000 ML IV STA (17:04)
[2023-01-20] MEDS: MEROPENEM 1 GM in DEXTROSE 5%-WATER 100 ML IVPB SCH (18:00)
[2023-01-21] MEDS: MEROPENEM 1 GM in DEXTROSE 5%-WATER 100 ML IVPB SCH ×3 (02:10→18:33)
[2023-01-21] MEDS: D5-1/2NS+20 MEQ KCL - 20 MEQ/1,000 ML INFUS.BAG IV SCH ×2 (06:57→15:07)
[2023-01-21 09:09] LABS: POTASSIUM 4.1 mmol/L (3.5-5.1)
[2023-01-21 09:21] LABS: CALCIUM 7.8 mg/dL (8.5-10.1)
[2023-01-21 09:23] LABS: ALBUMIN 2.6 g/dl (3.4-5.0); BLOOD UREA NITROGEN 12.6 mg/dL (7-18)
[2023-01-21 09:25] LABS: BILIRUBIN,TOTAL 0.6 mg/dL (0.2-1); CREATININE 1.2 mg/dL (0.55-1.3); TOT PROT 5.2 g/dl (6.4-8.2)
[2023-01-21] MEDS: TAMSULOSIN HCL 0.4 MG CAP PO SCH (09:26)
[2023-01-21] MEDS: ACETAMINOPHEN 650 MG/20.3 ML ORAL SOLUTION (CUPS) PO PRN (16:46)
[2023-01-22] MEDS: MEROPENEM 1 GM in DEXTROSE 5%-WATER 100 ML IVPB SCH ×3 (01:53→17:26)
[2023-01-22] MEDS: TAMSULOSIN HCL 0.4 MG CAP PO SCH (09:34)
[2023-01-22] MEDS: D5-1/2NS+20 MEQ KCL - 20 MEQ/1,000 ML INFUS.BAG IV SCH ×2 (11:26→14:04)
[2023-01-23] MEDS: MEROPENEM 1 GM in DEXTROSE 5%-WATER 100 ML IVPB SCH ×3 (02:41→17:36)
[2023-01-23] MEDS: TAMSULOSIN HCL 0.4 MG CAP PO SCH (09:18)
[2023-01-23 09:23] LABS: POTASSIUM 4.4 mmol/L (3.5-5.1)
[2023-01-23 09:42] LABS: ALBUMIN 2.7 g/dl (3.4-5.0)
[2023-01-23 09:45] LABS: CALCIUM 8.2 mg/dL (8.5-10.1)
[2023-01-23 09:47] LABS: BLOOD UREA NITROGEN 11.4 mg/dL (7-18)
[2023-01-23 09:50] LABS: BILIRUBIN,TOTAL 0.6 mg/dL (0.2-1); TOT PROT 5.7 g/dl (6.4-8.2)
[2023-01-23] MEDS: D5-1/2NS+20 MEQ KCL - 20 MEQ/1,000 ML INFUS.BAG IV SCH (14:18)
[2023-01-23] MEDS ORDERED: MEROPENEM 1 GM VIAL (RESTRICTED TO ID) IVPB ONE (17:34)
[2023-01-24] MEDS: MEROPENEM 1 GM in DEXTROSE 5%-WATER 100 ML IVPB SCH ×3 (02:29→17:36)
[2023-01-24] MEDS: TAMSULOSIN HCL 0.4 MG CAP PO SCH (09:25)
[2023-01-25] MEDS: MEROPENEM 1 GM in DEXTROSE 5%-WATER 100 ML IVPB SCH ×3 (02:06→17:30)
[2023-01-25] MEDS: TAMSULOSIN HCL 0.4 MG CAP PO SCH (09:56)
[2023-01-26] MEDS: MEROPENEM 1 GM in DEXTROSE 5%-WATER 100 ML IVPB SCH ×3 (02:36→17:09)
[2023-01-26] MEDS: TAMSULOSIN HCL 0.4 MG CAP PO SCH (08:52)
[2023-01-26 09:40] LABS: POTASSIUM 4.5 mmol/L (3.5-5.1)
[2023-01-26 09:44] LABS: CALCIUM 8.5 mg/dL (8.5-10.1)
[2023-01-26 09:45] LABS: BLOOD UREA NITROGEN 16.7 mg/dL (7-18)
[2023-01-26 09:47] LABS: CREATININE 1.1 mg/dL (0.55-1.3)
[2023-01-26 09:49] LABS: BILIRUBIN,TOTAL 0.7 mg/dL (0.2-1)
[2023-01-26 10:02] LABS: ALBUMIN 3.3 g/dl (3.4-5.0)
[2023-01-26] MEDS ORDERED: MEROPENEM 1 GM VIAL (RESTRICTED TO ID) IVPB ONE (16:21)
[2023-01-27] MEDS: MEROPENEM 1 GM in DEXTROSE 5%-WATER 100 ML IVPB SCH ×2 (02:52→10:45)
[2023-01-27] MEDS: TAMSULOSIN HCL 0.4 MG CAP PO SCH (10:08)
[2023-01-28] MEDS: TAMSULOSIN HCL 0.4 MG CAP PO SCH (11:00)
[2023-01-28] MEDS ORDERED: MEROPENEM 1 GM in DEXTROSE 5%-WATER 100 ML IVPB ONE (14:51)
[2023-01-29] MEDS: TAMSULOSIN HCL 0.4 MG CAP PO SCH (09:47)
[2023-01-29] MEDS: MEROPENEM 1 GM in DEXTROSE 5%-WATER 100 ML IVPB SCH ×2 (13:04→19:36)
[2023-01-30] MEDS ORDERED: MEROPENEM 1 GM VIAL (RESTRICTED TO ID) IVPB ONE (01:47)
[2023-01-30] MEDS: MEROPENEM 1 GM in DEXTROSE 5%-WATER 100 ML IVPB SCH ×3 (02:08→16:50)
[2023-01-30 09:06] LABS: HEMATOCRIT 40.9 % (35.4-49); HEMOGLOBIN 13.1 GM/dL (11.7-16.9); MCH 26.8 pg (25.7-33.7); MCHC 32.1 g/dl (32.0-35.9); MEAN CELL VOLUME 83.6 fl (80-96); MEAN PLT VOLUME 8.4 fl (7.5-11.1); PLATELET COUNT 475 10^3/uL (134-434); RBC 4.89 M/mm3 (4.00-5.60); RDW 13.4 % (11.9-15.9); WHITE BLOOD COUNT 6.2 K/mm3 (4.0-10.0)
[2023-01-30 09:18] LABS: POTASSIUM 4.9 mmol/L (3.5-5.1)
[2023-01-30 09:26] LABS: ALBUMIN 3.4 g/dl (3.4-5.0); BLOOD UREA NITROGEN 16.9 mg/dL (7-18)
[2023-01-30 09:28] LABS: CALCIUM 9.1 mg/dL (8.5-10.1)
[2023-01-30 09:29] LABS: CREATININE 1.1 mg/dL (0.55-1.3)
[2023-01-30 09:30] LABS: BILIRUBIN,TOTAL 0.8 mg/dL (0.2-1); TOT PROT 7.3 g/dl (6.4-8.2)
[2023-01-30] MEDS: TAMSULOSIN HCL 0.4 MG CAP PO SCH (09:48)
[2023-01-30 12:27] VITALS: RESP 20
[2023-01-30 15:23] VITALS: BP 115/68; PULSE 85; TEMP 98.6
== END 2023-01-30 18:30 | disposition home or self-care (01) | DRG 862 ==
LOC: JER 03:15 → JERBED 06:01 → J8W 18:58
PROVIDERS: ADMIT Family Medicine; ATTEND Family Medicine
PROC: 02HV33Z Insertion of Infusion Device into Superior Vena Cava, Percutaneous Approach (ICD-10-PCS; principal; 2023-01-24)
PROC: B518ZZA Fluoroscopy of Superior Vena Cava, Guidance (ICD-10-PCS; 2023-01-24)
DX: T81.40XA Infection following a procedure, unspecified, initial encounter (principal); A41.89 Other specified sepsis; N17.9 Acute kidney failure, unspecified; N39.0 Urinary tract infection, site not specified; Y83.8 Other surgical procedures as the cause of abnormal reaction of the patient, or of later complication, without mention of misadventure at the time of the procedure; R00.0 Tachycardia, unspecified; K40.20 Bilateral inguinal hernia, without obstruction or gangrene, not specified as recurrent; R31.9 Hematuria, unspecified; B96.29 Other Escherichia coli [E. coli] as the cause of diseases classified elsewhere; R33.8 Other retention of urine; N40.1 Benign prostatic hyperplasia with lower urinary tract symptoms
CPT/HCPCS: 0241U-QW; 36415; 36569; 71045-TC-FY; 76775-TC; 77001-TC-FY; 80048; 80053; 81003; 82553; 82570; 82803; 83605; 84156; 84300; 84443; 84484; 85025; 85027; 85610; 85730; 86850; 86900; 86901; 87040; 87086; 87186; 87635; 93005; 93010; 97116-GP; 97161-GP; 99285-25; C1751

== ENCOUNTER 2025-03-03 06:37 | Day surgery (SDC) | payer OTHER ==
[2025-02-23 15:00] VITALS: BMI 31.8
[2025-03-03] MEDS ORDERED: LIDOCAINE VISCOUS 2% ORAL/TOP 15 ML UNIT-DOSE CUP ONE (10:29)
[2025-03-03] MEDS: LIDOCAINE VISCOUS 2% ORAL/TOP 15 ML UNIT-DOSE CUP MM ONE (10:32)
[2025-03-03 11:06] VITALS: TEMP 97
[2025-03-03 11:35] VITALS: BP 116/73; PULSE 63; RESP 15
== END 2025-03-03 11:49 | disposition home or self-care (01) ==
LOC: JASU-ENDO 06:37
PROVIDERS: ATTEND Internal Medicine Gastroenterology
PROC: 0DBN8ZX Excision of Sigmoid Colon, Via Natural or Artificial Opening Endoscopic, Diagnostic (ICD-10-PCS; 2025-03-03)
PROC: 0DBK8ZX Excision of Ascending Colon, Via Natural or Artificial Opening Endoscopic, Diagnostic (ICD-10-PCS; principal; 2025-03-03 10:30)
DX: Z12.11 Encounter for screening for malignant neoplasm of colon (principal); D12.3 Benign neoplasm of transverse colon; K57.30 Diverticulosis of large intestine without perforation or abscess without bleeding
CPT/HCPCS: 88305-TC; 88342-TC